=== PATIENT | female | born 1985 | race Caucasian/White ===

== ENCOUNTER 2017-01-31 14:59 | Emergency (ER) | payer OTHER ==
[~2017-01-31] VITALS: Ht 165.1 cm; Wt 152.3 kg
[2017-01-31] MEDS ORDERED: TORADOL10 MG PO (16:46)
[2017-01-31] MEDS ORDERED: LIDODERM 5% P1 PATCH TD (16:46)
[2017-01-31] MEDS ORDERED: FLEXERIL10 MG PO (16:46)
[2017-01-31 17:31] VITALS: BP 112/58
== END 2017-01-31 17:39 | disposition home or self-care (01) ==
LOC: EME 14:59
DX: M54.5 Low back pain (principal); E11.9 Type 2 diabetes mellitus without complications
CPT/HCPCS: 72100; 99281; 99284; J1885